=== PATIENT | female | born 1965 | race Caucasian/White ===

== ENCOUNTER 2022-04-18 15:36 | Emergency (ER) | payer OTHER, MEDICARE | END 2022-04-18 19:08 | disposition home or self-care (01) | LOC: FER 15:36 | DX: M25.512 Pain in left shoulder (principal); E03.9 Hypothyroidism, unspecified; Z79.890 Hormone replacement therapy; Z88.0 Allergy status to penicillin; Z88.1 Allergy status to other antibiotic agents; V29.9XXA Motorcycle rider (driver) (passenger) injured in unspecified traffic accident, initial encounter | CPT/HCPCS: 73030; J1885 ==